=== PATIENT | male | born 1970 | race African-American/Black ===

== ENCOUNTER 2016-09-29 12:04 | Emergency (ER) | payer SELFPAY ==
[2016-09-29 11:48] LABS: INFLUENZA A NEG (NEG); INFLUENZA B NEG (NEG)
== END 2016-09-29 12:05 | disposition home or self-care (01) ==
LOC: CFTX 12:04
PROVIDERS: Physician Assistant
DX: B34.9 Viral infection, unspecified (principal); I10 Essential (primary) hypertension; E11.9 Type 2 diabetes mellitus without complications; Z88.8 Allergy status to other drugs, medicaments and biological substances
CPT/HCPCS: 82947; 87804; 99283

== ENCOUNTER 2017-02-25 20:00 | Emergency (ER) | payer BC ==
[~2017-02-25] VITALS: Ht 180.3 cm; Wt 128.8 kg
--- NOTE | ~2017-02-25 | CR126 ---
[facility] A Service of [facility] RADIOLOGY TEXT RESULTS PATIENT: ELENA GONZALEZ LOCATION: [facility] : 66 UNIT #: [id number] AGE: [address]: Fred Johns DO SEX: M ORDER DR: [id number] [facility] [address] [place], [place] [address] [id number] E MR#: [id number] Acc #: [id number] NAME: ELENA GONZALEZ : 1970 SEX: M STUDY DATE/TIME: 02/25/2017 21:41 UNIT: [facility] ROOM: STUDY DESCRIPTION: CR Foot Complete Min 3 View Lt Attending Physician: Fred Johns D.O. Referring Physician: [facility] Ordering Physician: Fred Johns D.O. Primary Care Physician: [facility] MEDICAL IMAGING REPORT This report is preliminary unless electronic signature is present EXAM Left foot 3 views, 02/25/2017 HISTORY Left foot pain and tingling beginning 2 weeks ago, worsening in the last 3 days. No known injury. FINDINGS The tarsal, metatarsal, and phalangeal elements are all anatomically normal in position and alignment. There are no articular defects. No fractures or radiopaque foreign bodies in the soft tissues are apparent. IMPRESSION Normal foot. Dictated by... Prudencio Salmon M.D. THIS IS AN ELECTRONICALLY VERIFIED REPORT Prudencio Salmon M.D. at 02/26/2017 2:15 PM KRT/psc TD: 02/26/2017 04:09 JOB #: [id number] MEDICAL IMAGING REPORT Page 1 of 1 COPY
[2017-02-25 22:29] LABS: BASOPHIL# 0.1 X10e3 (0-0.3); BASOPHIL% 0.6 % (0-2.5); EOSINOPHIL# 0.4 X10e3 (0-0.7); HEMATOCRIT 40.4 % (38.0-50.0); HEMOGLOBIN 13.9 gm/dL (13.0-16.0); LYMPHOCYTE# 3.9 X10e3 (1.0-3.5); LYMPHOCYTE% 41.4 % (17.0-45.0); MEAN CELL VOLUME 95.8 FL (83-96); MEAN CORPUSCULAR HGB CONC 34.4 g/dL (30-36); MEAN PLATELET VOLUME 9.3 FL (6.5-11.5); MONOCYTE# 1.3 X10e3 (0-1.0); MONOCYTE% 13.9 % (3.0-12.0); NEUTROPHIL# 3.8 X10e3 (1.5-7.1); NEUTROPHIL% 40.1 % (40-75); PLATELET COUNT 228 X10e3 (140-420); RED BLOOD COUNT 4.21 X10e (3.90-5.60); RED CELL DISTRIBUTION WIDTH 13.5 % (11.0-15.5); WHITE BLOOD COUNT 9.4 X10e3 (4.0-10.5)
[2017-02-25 22:30] LABS: DIFF IND NO
[2017-02-25 22:57] LABS: CALCIUM SERUM 9.1 mg/dL (8.4-10.2); CREATININE SERUM 1.1 mg/dL (0.6-1.4); GLOM FILT RATE Estimated 91.5 mL/min (>60); URIC ACID 6.1 mg/dL (2.6-7.2)
== END 2017-02-26 00:55 | disposition home or self-care (01) ==
LOC: CED 20:00
PROVIDERS: Emergency Medicine
DX: M79.602 Pain in left arm (principal); I10 Essential (primary) hypertension; E87.6 Hypokalemia; E11.65 Type 2 diabetes mellitus with hyperglycemia; E78.5 Hyperlipidemia, unspecified; G47.33 Obstructive sleep apnea (adult) (pediatric); Z88.8 Allergy status to other drugs, medicaments and biological substances
CPT/HCPCS: 36415; 73630; 80048; 82947; 84550; 85025; 99283